=== PATIENT | male | born 1955 | race Hispanic/Latino ===

== ENCOUNTER → 2021-04-10 | Outpatient (CLI) | payer OTHER ==
[~2021-04-10] MED LIST: AMLO-258 PO; ASPI-1005 PO; INSLAN SQ; INSU100I3 SQ; LISI2.5T2 PO; Lactulose PO; METO25 PO; PANT40TA PO; PRAV20TA4 PO; Polyethylene Glycol 3350 PO; TRAM50TA4 PO
== END | disposition home or self-care (01) ==
LOC: RAH 15:04
PROVIDERS: ATTEND Internal Medicine
DX: I25.10 Atherosclerotic heart disease of native coronary artery without angina pectoris (principal); I70.213 Atherosclerosis of native arteries of extremities with intermittent claudication, bilateral legs; I70.0 Atherosclerosis of aorta
CPT/HCPCS: 93925